=== PATIENT | female | born 1965 | race Caucasian/White ===

== ENCOUNTER 2023-07-15 05:44 | Observation (INO) ==
--- NOTE | 2023-06-22 14:07 | PAT Medication Instructions ---
Medication Instructions Date of Service June 22, 2023 Home Medications albuterol sulfate 90 mcg/actuation aerosol inhaler 1 inh inhalation QID PRN celecoxib 200 mg capsule (Celebrex) 200 mg PO QAM cholecalciferol (vitamin D3) 125 mcg (5,000 unit) tablet (Vitamin D3) 125 mcg PO QAM clonazepam 1 mg tablet (Klonopin) 1 mg PO BID cyanocobalamin (vitamin B-12) 1,000 mcg tablet (Vitamin B-12) 1,000 mcg PO QAM dextroamphetamine-amphetamine 30 mg tablet (Adderall) 30 mg PO TID dulaglutide 0.75 mg/0.5 mL subcutaneous pen injector (Trulicity) 0.75 mg subcut WK ferrous sulfate 325 mg (65 mg iron) tablet 325 mg PO BID insulin glargine 100 unit/mL (3 mL) subcutaneous pen (Lantus Solostar U-100 Insulin) 20 unit subcut BID lisinopril 10 mg tablet 10 mg PO HS montelukast 10 mg tablet (Singulair) 10 mg PO HS paroxetine HCl 30 mg tablet (Paxil) 60 mg PO QAM potassium chloride 20 mEq tablet,extended release 20 meq PO QAM rivaroxaban 20 mg tablet (Xarelto) 20 mg PO QAM ropinirole 4 mg tablet 4 mg PO TID rosuvastatin 10 mg tablet 10 mg PO HS tiotropium bromide 2.5 mcg/actuation mist for inhalation (Spiriva Respimat) 2 puff inhalation QAM topiramate 100 mg tablet (Topamax) 100 mg PO QAM STOP 7 days before surgery (to receive additional instructions at PAT appointment) dulaglutide 0.75 mg/0.5 mL subcutaneous pen injector (Trulicity) 0.75 mg subcut WK ASK your surgeon for instructions celecoxib 200 mg capsule (Celebrex) 200 mg PO QAM ASK your prescriber and surgeon rivaroxaban 20 mg tablet (Xarelto) 20 mg PO QAM(in order for spinal or epidural anesthesia, Xarelto needs to be stopped 72 hours/3 days before surgery. Please check if okay with doctor that prescribes this to you) DO NOT take the morning of surgery cholecalciferol (vitamin D3) 125 mcg (5,000 unit) tablet (Vitamin D3) 125 mcg PO QAM cyanocobalamin (vitamin B-12) 1,000 mcg tablet (Vitamin B-12) 1,000 mcg PO QAM dextroamphetamine-amphetamine 30 mg tablet (Adderall) 30 mg PO TID ferrous sulfate 325 mg (65 mg iron) tablet 325 mg PO BID potassium chloride 20 mEq tablet,extended release 20 meq PO QAM Take morning of surgery With a small sip of water, OTHERWISE NOTHING TO EAT OR DRINK AFTER MIDNIGHT: albuterol sulfate 90 mcg/actuation aerosol inhaler 1 inh inhalation QID PRN(use if needed; please bring with you to hospital day of surgery if possible) clonazepam 1 mg tablet (Klonopin) 1 mg PO BID paroxetine HCl 30 mg tablet (Paxil) 60 mg PO QAM ropinirole 4 mg tablet 4 mg PO TID tiotropium bromide 2.5 mcg/actuation mist for inhalation (Spiriva Respimat) 2 puff inhalation QAM topiramate 100 mg tablet (Topamax) 100 mg PO QAM Take evening before surgery albuterol sulfate 90 mcg/actuation aerosol inhaler 1 inh inhalation QID PRN(if needed) clonazepam 1 mg tablet (Klonopin) 1 mg PO BID dextroamphetamine-amphetamine 30 mg tablet (Adderall) 30 mg PO TID ferrous sulfate 325 mg (65 mg iron) tablet 325 mg PO BID lisinopril 10 mg tablet 10 mg PO HS montelukast 10 mg tablet (Singulair) 10 mg PO HS ropinirole 4 mg tablet 4 mg PO TID rosuvastatin 10 mg tablet 10 mg PO HS Insulin Dependent Diabetic Patients * Test your blood sugar the morning of surgery * If Blood Sugar is GREATER THAN 150, take HALF of your regular dose of: insulin glargine 100 unit/mL (3 mL) subcutaneous pen (Lantus Solostar U-100 Insulin). * If Blood Sugar is LESS THAN 150, DO NOT TAKE ANY: insulin glargine 100 unit/mL (3 mL) subcutaneous pen (Lantus Solostar U-100 Insulin). Other Notes If you have any questions please call us at [phone] or [phone] or [phone] or [phone]
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
[2023-07-15] MEDS ORDERED: ACETAMINOPHEN 500 MG TAB PO SCH (06:00)
[2023-07-15] MEDS ORDERED: LR 500ML BOLUS, THEN 15ML/HR IV SCH (06:00)
[2023-07-15] MEDS ORDERED: ceFAZolin 2000MG 2,000 MG/15 ML SYR IV SCH (06:00)
[2023-07-15] MEDS ORDERED: ROPIVACAINE 0.5% HCL/PF 150 MG, BUPIVACAINE 0.75% MPF 20 ML, EPINEPHrine 30MG/30ML (OR ... INSTIL SCH (06:00)
[2023-07-15] MEDS ORDERED: METOCLOPRAMIDE HCL 10 MG TABLET PO SCH (06:00)
[2023-07-15] MEDS ORDERED: LR 60ML/HR IV SCH (06:00)
[2023-07-15] MEDS ORDERED: TRANEXAMIC ACID 1,000 MG **IV Pre-op IV SCH (06:00)
[2023-07-15] MEDS ORDERED: FAMOTIDINE 20 MG TAB PO SCH (06:00)
[2023-07-15] MEDS ORDERED: GABAPENTIN 600 MG DOSE PO SCH (06:00)
[2023-07-15] MEDS ORDERED: TRANEXAMIC ACID 1,000 MG **IV Intra-op IV SCH (06:00)
[2023-07-15] MEDS ORDERED: CeleBREX 200 MG CAP PO SCH (06:00)
[2023-07-15] MEDS ORDERED: BUPIVACAINE 0.5 % 5 MG/1 ML PF 10ML VIAL ONE (06:26)
[2023-07-15] MEDS ORDERED: ROPIVACAINE 0.5% 5 MG/ML 30 ML VIAL ONE (06:27)
[2023-07-15] MEDS ORDERED: PROPOFOL IV EMULSION 10 MG/ML 20 ML VIAL IV ONE ×4 (07:00→09:24)
[2023-07-15] MEDS ORDERED: fentaNYL citrate PF 100 MCG/2 ML VIAL ONE (07:02)
[2023-07-15] MEDS ORDERED: MIDAZOLAM HCL 1 MG/ML 2ML VIAL ONE (07:02)
[2023-07-15] MEDS ORDERED: LIDOCAINE 2% 2 ML VIAL/AMP(20MG/ML) INFIL ONE (07:03)
[2023-07-15] MEDS ORDERED: ORTHO JOINT ANESTHETIC ONE (07:05)
--- NOTE | 2023-07-15 07:20 | History & Physical Bridge Note ---
Date of Service July 15, 2023 History & Physical Bridge Note I have examined the patient, reviewed the History & Physical and in the interval since the performance of the History & Physical I have noted the following changes of clinical significance: no changes noted
[2023-07-15] MEDS ORDERED: KETAMINE 50 MG/5 ML SYRINGE ONE (08:01)
[2023-07-15] MEDS ORDERED: HYDROmorphone INJ 2 MG/ML SYR/VIAL IV PRN (09:15)
[2023-07-15] MEDS ORDERED: ePHEDrine sulfate 50 MG/ML AMP ONE (09:15)
[2023-07-15] MEDS ORDERED: ePHEDrine sulfate 50 MG/ML AMP IV PRN (09:15)
[2023-07-15] MEDS ORDERED: ATROPINE SULFATE 0.1 MG/ML 10ML SYR IV PRN (09:15)
[2023-07-15] MEDS ORDERED: ePHEDrine sulfate 50 MG/5 ML SYR ONE (09:15)
[2023-07-15] MEDS ORDERED: fentaNYL citrate PF 100 MCG/2 ML VIAL IV PRN (09:15)
[2023-07-15] MEDS ORDERED: PHENYLEPHRINE 100MCG/ML 5ML SYR ONE (09:16)
[2023-07-15] MEDS ORDERED: ONDANSETRON INJ 2 MG/ML 2 ML VIAL ONE (10:06)
--- NOTE | 2023-07-15 10:41 | Operative Report ---
Post Operative Report Pre & Post Diagnosis Operation Date: 07/15/23 07:15 Pre-Op Diagnosis: Left Knee Osteoarthritis, Morbid obesity BMI 42.9 Post-Op Diagnosis: Left Knee Osteoarthritis, morbid obesity BMI 42.9 I identified the patient and participated in the time-out.: Yes Procedure Operation Date: 07/15/23 07:15 Actual Procedures p Left Total Knee Arthroplasty(Left), lateral release, wyatt and Acticoat superficial wound VAC application, increased difficulty due to morbid obesity BMI 42.9 - Heladio Mcpherson MD Surgeon Heladio Mcpherson MD Stock Taker Richi [employer] Estimated Blood Loss 5 Findings Consistent with Post-Op Diagnosis Specimens bone cuts Drains 2 Hemovac Anesthesia Type MAC Spinal Regional Complications none Disposition Disposition: Recovery Room Indications 58-year-old female with chronic osteoarthritis her left knee failed conservative management. X-rays demonstrate grade 4 medial compartment osteoarthritis tricompartmental osteoarthritis including the patellofemoral joint. Patient has a varus knee. Description of Procedure The patient was taken to the operating room and anesthetized under spinal MAC regional block anesthesia. patient was placed supine on the the operating table. A pneumatic tourniquet was placed about the Very obese left upper thigh. The knee exam demonstrated her obesity was abdominal in the thigh and extended down to the knee. There was a 15 degree flexion contracture with further flexion to 125 degrees. There was no pseudolaxity. The involved leg was elevated exsanguinated with Esmarch bandage and the pneumatic tourniquet was raised to 350 millimeters mercury. A longitudinal incision was made across the anterior knee. 358 deep layer of fat was divided down to the fascia. Skin flaps were elevated. An incision was made into the medial retinaculum and extended up into the mid third of the quadriceps tendon and extended down to the medial aspect of the tibial tubercle. intra-articular findings demonstrated degenerative partial tearing of the ACL multiple loose bodies chronic synovitis grade 4 osteoarthritis medial compartment with tricompartmental arthritic changes with advanced patellofemoral osteoarthritis as well with tricompartmental osteophytes. There was a large lateral osteophyte extending and impinging on the IT band and there was a lateral meniscal cyst multiloculated ganglionic type cyst with a degenerative cyst adjacent to the popliteus tendon with degenerative type yellow tissue within it. The knee joint was exposed by excising the cruciate ligaments and menisci. The infrapatellar fat pad was resected. All loose bodies were excised and the ganglion cyst and degenerative type cyst was excised. The fat pad over the anterior femur at the upper aspect of the articular surface was resected for placement of the component in that area. A subperiosteal peel lateral release was performed around the patella. The [employer] journey total knee arthroplasty system was utilized for the procedure. The intramedullary drill hole made into the femur followed by the guide santiago followed by placing a distal femoral cutting guide at 5 degree valgus cut. Distal femoral cutting guide was just to resect 2 more millimeters of femoral cut due to the flexion contracture.. The distal femoral cut was made. The sizing guide was placed in 3 degrees of external rotation the femur sized for a 4 implant. The size 4, 5 in 1 cutting block was placed. The anterior posterior and chamfer cuts were made. The knee was extended and a free hand cut technique was performed to the patella. The patella width was measured and the width was reproduced using a 32 symmetrical patella component. 3 drill holes are made for the patella component pegs. The tibia was then subluxed. The external tibial cutting guide was pinned in position and the proximal tibial cut was made with the oscillating saw. the large lateral osteophyte was excised decompressing the IT band area. Flexion and extension gaps were balanced. No releases were required. The size 2 tibial trial was externally rotated in line with the tibial tubercle and pinned in position. The punch for the stem was used. The femoral trial was inserted and centered the notch cutting devices were used and the collet was placed. Tibial trials were used for the insert. The size 12 posterior stabilized trial gave balanced ligaments through full range of motion. Patella tracking was assessed with range of motion. The patella tracked with some lateral patellar tilt so I did a release of the lateral retinaculum leaving the synovium intact After which the patella tracked centrally.. The trials were removed. The Orthomix anesthetic cocktail was injected per protocol. The cut bone surfaces and soft tissue were copiously irrigated with pulsatile lavage saline solution. The final components were cemented with Refobacin cement. The final components were [employer] journey 2.0 size 4 left posterior stabilized femoral component, 2 left tibial component, 12 mm left posterior stabilized tibial polyethylene insert and 32 mm symmetrical polyethyl jonn patella. After the cement cured, the Betadine soak was used for 3 minutes. The knee was then copiously irrigated with pulsatile lavage saline solution. 2 drains were brought out laterally connected to Hemovac. The quadriceps tendon and medial retinaculum were closed with interrupted [id number] #1 Vicryl sutures. The knee was taken through full range of motion and repair was secure. Knee range of motion was 0 through 130 degrees. the subcutaneous tissues were closed with 2-0 Vicryl sutures in layers due to the obesity. The skin was closed with stable. A wyatt and Acticoat superficial wound VAC was applied. The tourniquet was let down and the patient had good capillary refill to the extremity. The patient tolerated the procedure well. My physician research assistant professor Harris COSME participated as fast food assistant restaurant manager and was integral part in all aspects of the procedure including prepping, draping, leg positioning, soft tissue retraction, instrument management and assisted in the closure , wyatt and Acticoat superficial wound VAC application and will participate in postoperative care the patient. I attest to the content of the Intraoperative Record and any orders documented therein. Any exceptions are noted below.
[2023-07-15] MEDS ORDERED: METOCLOPRAMIDE HCL INJ 5 MG/ML 2 ML VIAL IV PRN (12:50)
[2023-07-15] MEDS ORDERED: PHARMACY GLYCEMIC MGMT CONSULT PRN (12:50)
[2023-07-15] MEDS ORDERED: ONDANSETRON INJ 2 MG/ML 2 ML VIAL IV PRN (12:50)
[2023-07-15] MEDS ORDERED: NALOXONE HCL 0.4 MG/1 ML VIAL/CARP IV PRN (12:50)
[2023-07-15] MEDS ORDERED: bisacodyL 10 MG SUPP PR PRN (12:50)
[2023-07-15] MEDS ORDERED: MAGNESIUM HYDROXIDE SUSP 30 ML UDC PO PRN (12:50)
[2023-07-15] MEDS ORDERED: HYDROmorphone INJ 0.5 MG/0.5 ML SYR IV PRN (12:50)
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
[2023-07-15] MEDS: oxyCODONE HCL IR 5 MG TAB (IMMEDIATE RELEASE) PO PRN ×2 (13:12→21:00)
--- NOTE | 2023-07-15 13:12 | Anesthesiology Progress Note ---
Date of Service July 15, 2023 Anesthesia Post Procedure Vital Signs Vital Signs: Temp Pulse Pulse Resp BP BP Pulse Ox 07/15/23 13:10 36.5 C 82 18 111/75 87 L 07/15/23 12:49 36.6 C 82 18 111/77 90 07/15/23 12:36 36.6 C 86 18 117/77 87 L 07/15/23 12:00 80 20 120/70 95 07/15/23 11:45 60 15 113/72 97 07/15/23 10:50 82 18 125/86 97 07/15/23 11:30 36.4 C L 75 14 114/77 97 07/15/23 11:20 36.1 C L 60 14 120/82 96 07/15/23 11:10 78 16 114/86 97 07/15/23 11:00 60 18 126/86 97 07/15/23 10:40 88 18 120/85 97 07/15/23 10:30 36.0 C L 90 18 126/92 99 07/15/23 06:44 135/81 07/15/23 06:13 36.9 C 81 18 164/85 H 95 O2 Del Method O2 Flow Rate 07/15/23 13:10 Room Air 07/15/23 12:49 Room Air 07/15/23 12:36 Room Air 07/15/23 12:00 Nasal Cannula 2 07/15/23 11:45 Nasal Cannula 2 07/15/23 10:50 Nasal Cannula 2 07/15/23 11:30 Nasal Cannula 2 07/15/23 11:20 Nasal Cannula 2 07/15/23 11:10 Nasal Cannula 2 07/15/23 11:00 Nasal Cannula 2 07/15/23 10:40 Nasal Cannula 3 07/15/23 10:30 Nasal Cannula 3 07/15/23 06:44 07/15/23 06:13 Room Air Pain Intensity Left Knee: Pain Intensity: 9 Transfer of Care Handoff Completed per policy Notes Mental Status: alert / awake / arousable and participated in evaluation Nausea / Vomiting: adequately controlled Pain: adequately controlled Airway Patency, RR, SpO2: stable & adequate BP & HR: stable & adequate Hydration State: stable & adequate Neuraxial Anesthesia: was administered and sensory block is resolving Anesthetic Complications: no major complications apparent and Pt Satisfied with anesthetic care
[2023-07-15 13:25] LABS: Hematocrit (blood only) 39.9 % (37.0-47.0); Hemoglobin 12.7 g/dl (12.0-16.0); Mean Corpuscular Hemoglobin 31.7 pg (25.0-34.0); Mean Corpuscular Hgb Conc 31.8 g/dL (32.0-36.0); Mean Corpuscular Volume 99.5 fL (80.0-100.0); Mean Platelet Volume 9.9 fL (9.4-12.4); Platelet Count 179 K/uL (130-400); RDW Coefficient of Variation 12.9 % (11.5-14.5); RDW Standard Deviation 47.4 fL (36.4-46.3); Red Blood Count 4.01 M/uL (4.20-5.40); White Blood Count 10.24 K/ul (4.8-10.8)
[2023-07-15 13:41] LABS: Albumin Globulin Ratio 1.3 (0.9-2); Albumin Level 3.7 gm/dl (3.4-5.0); BUN Creatinine Ratio 25.3 (10-20); Bilirubin,Total 0.5 mg/dl (0.2-1.0); Calcium 8.7 mg/dl (8.6-10.3); Creatinine Clr Calc Pharmacy 85.9 ml/min; Est GFR (African American) 86.3 ml/min; Est GFR (Non-African American) 74.5 ml/min; Globulin 2.9 gm/dl (2.5-4.0); Potassium 3.9 mmol/L (3.5-5.1); Total Protein 6.6 gm/dl (6.0-8.3)
[2023-07-15] MEDS ORDERED: GLUCOSE 10 TAB/TUBE PO PRN (14:15)
[2023-07-15] MEDS ORDERED: GLUCOSE 40% GEL 15 GM TUBE PO PRN (14:15)
[2023-07-15] MEDS ORDERED: DEXTROSE 50% 50 ML SYRINGE IV PRN (14:15)
[2023-07-15] MEDS ORDERED: GLUCAGON FOR INJ 1 MG VIAL IM PRN (14:15)
--- NOTE | 2023-07-15 14:28 | Pharmacy Report ---
Pharmacy Glycemic Short Note 2 - Date of Service July 15, 2023 - Glycemic Short BSG Results (Last 24 hours): 07/15/23 07/15/23 07/15/23 06:04 10:35 12:54 Glucose 126 H POC Glucose 156 H 135 H OUTPATIENT ANTIDIABETIC REGIMEN: * Lantus 20 units SQ BID * Trulicity 0.75 mg SQ weekly ASSESSMENT: * Ms Wagner is a 58 y/o F with a PMH of T2DM who presents for L TKA. * Patient's preop BSG was 156 and postop BSG was 135. No steroids administered. * Patient took Lantus 15 units RN MED SURG. Will continue with Lantus 15 units SQ BID which is between weight-based stress of 2 and 3. * Novolog weight based stress of 3. PLAN FOR INPATIENT GLYCEMIC CONTROL: * Hold outpatient oral diabetes medications * Basal insulin * Lantus 15 units SQ BID * Bolus insulin * NovoLog per scale ACHS or Q6hrs while NPO * Goal Range: Low 110 mg/dL - High 140 mg/dL * Correction Factor: 20 mg/dL/unit * Nutritional / Prandial insulin per carb ratio of 1 unit per 7 grams CHO consumed
[2023-07-15] MEDS: SODIUM CHLORIDE 0.9% 1,000 ML IV SCH (14:57)
[2023-07-15] MEDS: ACETAMINOPHEN 500 MG TAB PO SCH ×2 (14:57→21:00)
[2023-07-15] MEDS: AMPHETAMINE ASP/SULF/DEXTRAMPH 10 MG TAB PO SCH ×2 (15:07→20:41)
[2023-07-15] MEDS: ALBUTEROL HFA 8 GM INHALER INH PRN (15:46)
--- NOTE | 2023-07-15 15:50 | XRay Report ---
TWO VIEWS LEFT KNEE CLINICAL HISTORY: Postoperative examination. FINDINGS: AP and crosstable lateral portable views of the left knee are obtained. A left knee arthrop lasty is in near anatomic alignment. There has been undersurface remodeling of the patella. No acute fracture is seen. There are expected postoperative changes around the knee including skin clips, a العلي rgical drain, soft tissue edema, and subcutaneous gas. IMPRESSION: Expected postoperative changes status post left knee arthroplasty. No acute fracture is s een. ACT 112: Negative or not required by law. Electronically signed by: Spencer Carreon M.D. 07/15/2023 3:49 PM
[2023-07-15] MEDS: ceFAZolin 2000MG 2,000 MG/15 ML SYR IV SCH ×2 (16:34→23:42)
[2023-07-15] MEDS: FLUTICASONE/VILANTEROL 100/25MCG 14 PUFFS/INHALER INH SCH (16:35)
[2023-07-15] MEDS: INSULIN ASPART PER UNIT CHARGE SC SCH ×3 (16:52→20:57)
[2023-07-15] MEDS: clonazePAM 1 MG TAB PO SCH (20:42)
[2023-07-15] MEDS: FERROUS SULFATE 325 MG TAB PO SCH (20:43)
[2023-07-15] MEDS: DOCUSATE SODIUM 100 MG CAP PO SCH (20:44)
[2023-07-15] MEDS: CARBOHYDRATES FOR HYPOGLYCEMIA PO PRN ×2 (20:52→21:07)
[2023-07-15] MEDS ORDERED: MONTELUKAST SODIUM 10 MG TABLET PO SCH (21:00)
[2023-07-15] MEDS ORDERED: ROSUVASTATIN CALCIUM 20 MG TAB PO SCH (21:00)
[2023-07-15] MEDS ORDERED: ROSUVASTATIN CALCIUM 10 MG TAB PO SCH (21:00)
[2023-07-15] MEDS ORDERED: SENNA 8.6 MG TAB PO SCH (21:00)
[2023-07-15] MEDS ORDERED: D5W AND NSS 1,000 ML IV SCH (23:45)
[2023-07-16] MEDS: SODIUM CHLORIDE 0.9% 1,000 ML IV SCH (00:13)
[2023-07-16] MEDS: oxyCODONE HCL IR 5 MG TAB (IMMEDIATE RELEASE) PO PRN ×2 (02:59→08:39)
[2023-07-16] MEDS: ACETAMINOPHEN 500 MG TAB PO SCH (05:45)
[2023-07-16] MEDS: ALBUTEROL HFA 8 GM INHALER INH PRN (07:39)
--- NOTE | 2023-07-16 08:00 | Orthopedic Progress Note ---
Date of Service July 16, 2023 Assessment & Plan (1) Status post total left knee replacement: Plan: Postop day #1 left total knee arthroplasty -PT/OT -Pain management as written -A.m. labs are pending -DVT prophylaxis: SCDs, teds, Xarelto -Discharge planning: Plan on discharge home with plans on attending outpatient therapy. Plan to discharge home today as long as she progresses well. Admission and Anticipated Discharge Date Admission Date: July 15, 2023 Subjective Patient is postop day #1 left total knee. She is doing well this morning. Has some pain but is controlled. No other complaints. Denies chest pain, shortness of breath, nausea/vomiting/diarrhea, headaches or dizziness. She is hoping to go home today. Review of Systems Review of Systems: All systems reviewed & are unremarkable except as noted in Subjective Physical Exam Physical Exam: Left knee: Dressing is clean, dry, intact. No calf tenderness. Has good dorsiflexion. Toes are mobile. Able to do a straight leg raise. Distally neurovascular status and sensation is grossly intact. Constitutional: WD/WN, vitals as above Results & Data Vital Signs (Past 12 Hours) Vital Signs Temp Pulse Resp BP Pulse Ox O2 Del Method 07/16/23 07:41 86 18 90 Room Air 07/16/23 07:28 93 Room Air 07/16/23 07:00 36.7 C 98 H 18 130/84 90 Room Air 07/16/23 02:54 36.4 C L 91 H 18 127/80 92 Room Air 07/15/23 22:56 36.5 C 92 H 18 142/84 H 91 Room Air 07/15/23 21:49 Room Air Laboratory Results Lab Results 07/15/23 07/15/23 07/15/23 Range/Units 06:04 10:35 12:54 WBC 10.24 (4.8-10.8) K/ul RBC 4.01 L (4.20-5.40) M/uL Hgb 12.7 (12.0-16.0) g/dl Hct 39.9 (37.0-47.0) % MCV 99.5 (80.0-100.0) fL MCH 31.7 (25.0-34.0) pg MCHC 31.8 L (32.0-36.0) g/dL RDW Std Deviation 47.4 H (36.4-46.3) fL RDW Coeff of Carina 12.9 (11.5-14.5) % Plt Count 179 (130-400) K/uL MPV 9.9 (9.4-12.4) fL Sodium (136-145) mmol/L Potassium (3.5-5.1) mmol/L Chloride (98-107) mmol/L Carbon Dioxide (21-32) mmol/L Anion Gap (3-11) BUN (6-23) mg/dl Creatinine (0.6-1.2) mg/dl Est Cr Clr Drug Dosing ml/min Est GFR ( Amer) ml/min Est GFR (Non-Af Amer) ml/min BUN/Creatinine Ratio (10-20) Glucose (70-99(Fasting)) mg/dl POC Glucose 156 H 135 H (70-99) mg/dl Calcium (8.6-10.3) mg/dl Total Bilirubin (0.2-1.0) mg/dl AST (13-39) U/L ALT (7-52) U/L Alkaline Phosphatase (34-104) U/L Total Protein (6.0-8.3) gm/dl Albumin (3.4-5.0) gm/dl Globulin (2.5-4.0) gm/dl Albumin/Globulin Ratio (0.9-2) 07/15/23 07/15/23 07/15/23 Range/Units 12:54 16:42 20:43 WBC (4.8-10.8) K/ul RBC (4.20-5.40) M/uL Hgb (12.0-16.0) g/dl Hct (37.0-47.0) % MCV (80.0-100.0) fL MCH (25.0-34.0) pg MCHC (32.0-36.0) g/dL RDW Std Deviation (36.4-46.3) fL RDW Coeff of Carina (11.5-14.5) % Plt Count (130-400) K/uL MPV (9.4-12.4) fL Sodium 140 (136-145) mmol/L Potassium 3.9 (3.5-5.1) mmol/L Chloride 110 H (98-107) mmol/L Carbon Dioxide 26 (21-32) mmol/L Anion Gap 4 (3-11) BUN 22 (6-23) mg/dl Creatinine 0.87 (0.6-1.2) mg/dl Est Cr Clr Drug Dosing 85.9 ml/min Est GFR ( Amer) 86.3 ml/min Est GFR (Non-Af Amer) 74.5 ml/min BUN/Creatinine Ratio 25.3 H (10-20) Glucose 126 H (70-99(Fasting)) mg/dl POC Glucose 161 H 48 L* (70-99) mg/dl Calcium 8.7 (8.6-10.3) mg/dl Total Bilirubin 0.5 (0.2-1.0) mg/dl AST 14 (13-39) U/L ALT 17 (7-52) U/L Alkaline Phosphatase 57 (34-104) U/L Total Protein 6.6 (6.0-8.3) gm/dl Albumin 3.7 (3.4-5.0) gm/dl Globulin 2.9 (2.5-4.0) gm/dl Albumin/Globulin Ratio 1.3 (0.9-2) 07/15/23 07/15/23 07/15/23 Range/Units 20:44 21:05 21:23 WBC (4.8-10.8) K/ul RBC (4.20-5.40) M/uL Hgb (12.0-16.0) g/dl Hct (37.0-47.0) % MCV (80.0-100.0) fL MCH (25.0-34.0) pg MCHC (32.0-36.0) g/dL RDW Std Deviation (36.4-46.3) fL RDW Coeff of Carina (11.5-14.5) % Plt Count (130-400) K/uL MPV (9.4-12.4) fL Sodium (136-145) mmol/L Potassium (3.5-5.1) mmol/L Chloride (98-107) mmol/L Carbon Dioxide (21-32) mmol/L Anion Gap (3-11) BUN (6-23) mg/dl Creatinine (0.6-1.2) mg/dl Est Cr Clr Drug Dosing ml/min Est GFR ( Amer) ml/min Est GFR (Non-Af Amer) ml/min BUN/Creatinine Ratio (10-20) Glucose (70-99(Fasting)) mg/dl POC Glucose 55 L* 65 L* 76 (70-99) mg/dl Calcium (8.6-10.3) mg/dl Total Bilirubin (0.2-1.0) mg/dl AST (13-39) U/L ALT (7-52) U/L Alkaline Phosphatase (34-104) U/L Total Protein (6.0-8.3) gm/dl Albumin (3.4-5.0) gm/dl Globulin (2.5-4.0) gm/dl Albumin/Globulin Ratio (0.9-2) 07/15/23 07/15/23 07/16/23 Range/Units 23:16 23:54 02:48 WBC (4.8-10.8) K/ul RBC (4.20-5.40) M/uL Hgb (12.0-16.0) g/dl Hct (37.0-47.0) % MCV (80.0-100.0) fL MCH (25.0-34.0) pg MCHC (32.0-36.0) g/dL RDW Std Deviation (36.4-46.3) fL RDW Coeff of Carina (11.5-14.5) % Plt Count (130-400) K/uL MPV (9.4-12.4) fL Sodium (136-145) mmol/L Potassium (3.5-5.1) mmol/L Chloride (98-107) mmol/L Carbon Dioxide (21-32) mmol/L Anion Gap (3-11) BUN (6-23) mg/dl Creatinine (0.6-1.2) mg/dl Est Cr Clr Drug Dosing ml/min Est GFR ( Amer) ml/min Est GFR (Non-Af Amer) ml/min BUN/Creatinine Ratio (10-20) Glucose (70-99(Fasting)) mg/dl POC Glucose 41 L* 122 H 85 (70-99) mg/dl Calcium (8.6-10.3) mg/dl Total Bilirubin (0.2-1.0) mg/dl AST (13-39) U/L ALT (7-52) U/L Alkaline Phosphatase (34-104) U/L Total Protein (6.0-8.3) gm/dl Albumin (3.4-5.0) gm/dl Globulin (2.5-4.0) gm/dl Albumin/Globulin Ratio (0.9-2) 07/16/23 Range/Units 07:51 WBC (4.8-10.8) K/ul RBC (4.20-5.40) M/uL Hgb (12.0-16.0) g/dl Hct (37.0-47.0) % MCV (80.0-100.0) fL MCH (25.0-34.0) pg MCHC (32.0-36.0) g/dL RDW Std Deviation (36.4-46.3) fL RDW Coeff of Carina (11.5-14.5) % Plt Count (130-400) K/uL MPV (9.4-12.4) fL Sodium (136-145) mmol/L Potassium (3.5-5.1) mmol/L Chloride (98-107) mmol/L Carbon Dioxide (21-32) mmol/L Anion Gap (3-11) BUN (6-23) mg/dl Creatinine (0.6-1.2) mg/dl Est Cr Clr Drug Dosing ml/min Est GFR ( Amer) ml/min Est GFR (Non-Af Amer) ml/min BUN/Creatinine Ratio (10-20) Glucose (70-99(Fasting)) mg/dl POC Glucose 117 H (70-99) mg/dl Calcium (8.6-10.3) mg/dl Total Bilirubin (0.2-1.0) mg/dl AST (13-39) U/L ALT (7-52) U/L Alkaline Phosphatase (34-104) U/L Total Protein (6.0-8.3) gm/dl Albumin (3.4-5.0) gm/dl Globulin (2.5-4.0) gm/dl Albumin/Globulin Ratio (0.9-2)
[2023-07-16] MEDS: INSULIN ASPART PER UNIT CHARGE SC SCH (08:23)
[2023-07-16] MEDS: DOCUSATE SODIUM 100 MG CAP PO SCH (08:24)
[2023-07-16] MEDS: FLUTICASONE/VILANTEROL 100/25MCG 14 PUFFS/INHALER INH SCH (08:26)
[2023-07-16] MEDS: FERROUS SULFATE 325 MG TAB PO SCH (08:28)
[2023-07-16 08:31] LABS: Hematocrit (blood only) 36.2 % (37.0-47.0); Hemoglobin 11.7 g/dl (12.0-16.0); Mean Corpuscular Hemoglobin 32.1 pg (25.0-34.0); Mean Corpuscular Hgb Conc 32.3 g/dL (32.0-36.0); Mean Corpuscular Volume 99.5 fL (80.0-100.0); Mean Platelet Volume 10.2 fL (9.4-12.4); Platelet Count 164 K/uL (130-400); RDW Standard Deviation 47.8 fL (36.4-46.3); Red Blood Count 3.64 M/uL (4.20-5.40); White Blood Count 8.89 K/ul (4.8-10.8)
[2023-07-16] MEDS: clonazePAM 1 MG TAB PO SCH (08:39)
[2023-07-16 08:48] LABS: BUN Creatinine Ratio 26.8 (10-20); Calcium 8.2 mg/dl (8.6-10.3); Creatinine Clr Calc Pharmacy 77.1 ml/min; Est GFR (African American) 75.7 ml/min; Est GFR (Non-African American) 65.3 ml/min; Potassium 4.3 mmol/L (3.5-5.1)
[2023-07-16] MEDS ORDERED: NICOTINE 21 MG/24 HR TDSY TD SCH (09:00)
[2023-07-16] MEDS ORDERED: TOPIRAMATE 100 MG TAB PO SCH (09:00)
[2023-07-16] MEDS ORDERED: PARoxetine HCL 20 MG TAB PO SCH (09:00)
[2023-07-16] MEDS ORDERED: RIVAROXABAN 20 MG TAB PO SCH (09:00)
[2023-07-16] MEDS ORDERED: UMECLIDINIUM BROMIDE 62.5MCG/BLISTER 7 PUFFS/INHALER INH SCH (09:00)
[2023-07-16] MEDS ORDERED: CYANOCOBALAMIN (B-12) 500 MCG TABLET PO SCH (09:00)
[2023-07-16] MEDS ORDERED: CeleBREX 200 MG CAP PO SCH (09:00)
[2023-07-16] MEDS ORDERED: MULTIVITAMIN TAB PO SCH (09:00)
[2023-07-16] MEDS ORDERED: CHOLECALCIFEROL 5,000 UNITS 125 MCG TAB PO SCH (09:00)
[2023-07-16] MEDS: AMPHETAMINE ASP/SULF/DEXTRAMPH 10 MG TAB PO SCH (09:51)
--- NOTE | 2023-07-16 12:20 | Discharge Summary ---
Date of Service July 16, 2023 Admission HPI Per Admitting Provider 58-year-old female with past medical history significant for CAD, hypertension, diabetes, COPD, history of PE, anxiety, migraines who presents with ongoing left knee pain. Her pain is interfering with her daily and leisure activities. She has failed conservative measures and would like to proceed with surgical intervention. Patient denies headaches, sweats, fevers, chills, double vision, blurred vision, cough, sore throat, dysphagia, chest pain, sob, wheezing, n/v/d/c, numbness, tingling, fatigue, urinary symptoms, mood disorders. ROS positive for left knee pain and stiffness. Admission Exam Per Admitting Provider Constitutional: well developed and well nourished; no acute distress Eyes: PERRL, conjunctivae normal, anicteric sclerae ENMT: external ear and nose normal, oropharynx normal Neck: trachea midline, no thyromegaly Respiratory: normal respiratory effort, lungs clear to auscultation Cardiovascular: RRR, no murmur, no edema A Musculoskeletal: Left knee: Varus alignment. Mild effusion with tenderness medial joint line. Vincent's is positive. Stable to valgus and varus stress test. Range of motion is 0 to 100 degrees. Skin: no rashes, warm and dry Neurologic: patellar DTR's 2+ bilat, sensation intact Psychiatric: A+Ox3, euthymic affect Principal Diagnosis Left knee osteoarthritis Discharge Exam Left knee: Dressing is clean, dry, intact. No calf tenderness. Has good dorsiflexion. Toes are mobile. Able to do a straight leg raise. Distally neurovascular status and sensation is grossly intact. Discharge Data Allergies Allergy/AdvReac Type Severity Reaction Status Date / Time meperidine [From Demerol] Allergy Severe IV Demerol Verified 07/15/23 06:04 - severe arm swelling Sulfa (Sulfonamide Allergy Severe Rash Verified 07/15/23 06:04 Antibiotics) Consultations 07/13/23 16:42 Consult Hospitalist Routine Procedures Performed Operation Date: 07/15/23 07:15 Actual Procedures p Left Total Knee Arthroplasty(Left) - Heladio Mcpherson MD Ordered Studies 07/15/23 05:00 US - OR guided needle placemen Routine Hospital Course (1) Status post total left knee replacement: Postop day #1 left total knee arthroplasty -PT/OT -Pain management as written -A.m. labs are pending -DVT prophylaxis: SCDs, teds, Xarelto -Discharge planning: Plan on discharge home with plans on attending outpatient therapy. Plan to discharge home today as long as she progresses well. Lab Results 07/15/23 07/15/23 07/15/23 Range/Units 06:04 10:35 12:54 WBC 10.24 (4.8-10.8) K/ul RBC 4.01 L (4.20-5.40) M/uL Hgb 12.7 (12.0-16.0) g/dl Hct 39.9 (37.0-47.0) % MCV 99.5 (80.0-100.0) fL MCH 31.7 (25.0-34.0) pg MCHC 31.8 L (32.0-36.0) g/dL RDW Std Deviation 47.4 H (36.4-46.3) fL RDW Coeff of Carina 12.9 (11.5-14.5) % Plt Count 179 (130-400) K/uL MPV 9.9 (9.4-12.4) fL Sodium (136-145) mmol/L Potassium (3.5-5.1) mmol/L Chloride (98-107) mmol/L Carbon Dioxide (21-32) mmol/L Anion Gap (3-11) BUN (6-23) mg/dl Creatinine (0.6-1.2) mg/dl Est Cr Clr Drug Dosing ml/min Est GFR ( Amer) ml/min Est GFR (Non-Af Amer) ml/min BUN/Creatinine Ratio (10-20) Glucose (70-99(Fasting)) mg/dl POC Glucose 156 H 135 H (70-99) mg/dl Calcium (8.6-10.3) mg/dl Total Bilirubin (0.2-1.0) mg/dl AST (13-39) U/L ALT (7-52) U/L Alkaline Phosphatase (34-104) U/L Total Protein (6.0-8.3) gm/dl Albumin (3.4-5.0) gm/dl Globulin (2.5-4.0) gm/dl Albumin/Globulin Ratio (0.9-2) 07/15/23 07/15/23 07/15/23 Range/Units 12:54 16:42 20:43 WBC (4.8-10.8) K/ul RBC (4.20-5.40) M/uL Hgb (12.0-16.0) g/dl Hct (37.0-47.0) % MCV (80.0-100.0) fL MCH (25.0-34.0) pg MCHC (32.0-36.0) g/dL RDW Std Deviation (36.4-46.3) fL RDW Coeff of Carina (11.5-14.5) % Plt Count (130-400) K/uL MPV (9.4-12.4) fL Sodium 140 (136-145) mmol/L Potassium 3.9 (3.5-5.1) mmol/L Chloride 110 H (98-107) mmol/L Carbon Dioxide 26 (21-32) mmol/L Anion Gap 4 (3-11) BUN 22 (6-23) mg/dl Creatinine 0.87 (0.6-1.2) mg/dl Est Cr Clr Drug Dosing 85.9 ml/min Est GFR ( Amer) 86.3 ml/min Est GFR (Non-Af Amer) 74.5 ml/min BUN/Creatinine Ratio 25.3 H (10-20) Glucose 126 H (70-99(Fasting)) mg/dl POC Glucose 161 H 48 L* (70-99) mg/dl Calcium 8.7 (8.6-10.3) mg/dl Total Bilirubin 0.5 (0.2-1.0) mg/dl AST 14 (13-39) U/L ALT 17 (7-52) U/L Alkaline Phosphatase 57 (34-104) U/L Total Protein 6.6 (6.0-8.3) gm/dl Albumin 3.7 (3.4-5.0) gm/dl Globulin 2.9 (2.5-4.0) gm/dl Albumin/Globulin Ratio 1.3 (0.9-2) 07/15/23 07/15/23 07/15/23 Range/Units 20:44 21:05 21:23 WBC (4.8-10.8) K/ul RBC (4.20-5.40) M/uL Hgb (12.0-16.0) g/dl Hct (37.0-47.0) % MCV (80.0-100.0) fL MCH (25.0-34.0) pg MCHC (32.0-36.0) g/dL RDW Std Deviation (36.4-46.3) fL RDW Coeff of Carina (11.5-14.5) % Plt Count (130-400) K/uL MPV (9.4-12.4) fL Sodium (136-145) mmol/L Potassium (3.5-5.1) mmol/L Chloride (98-107) mmol/L Carbon Dioxide (21-32) mmol/L Anion Gap (3-11) BUN (6-23) mg/dl Creatinine (0.6-1.2) mg/dl Est Cr Clr Drug Dosing ml/min Est GFR ( Amer) ml/min Est GFR (Non-Af Amer) ml/min BUN/Creatinine Ratio (10-20) Glucose (70-99(Fasting)) mg/dl POC Glucose 55 L* 65 L* 76 (70-99) mg/dl Calcium (8.6-10.3) mg/dl Total Bilirubin (0.2-1.0) mg/dl AST (13-39) U/L ALT (7-52) U/L Alkaline Phosphatase (34-104) U/L Total Protein (6.0-8.3) gm/dl Albumin (3.4-5.0) gm/dl Globulin (2.5-4.0) gm/dl Albumin/Globulin Ratio (0.9-2) 07/15/23 07/15/23 07/16/23 Range/Units 23:16 23:54 02:48 WBC (4.8-10.8) K/ul RBC (4.20-5.40) M/uL Hgb (12.0-16.0) g/dl Hct (37.0-47.0) % MCV (80.0-100.0) fL MCH (25.0-34.0) pg MCHC (32.0-36.0) g/dL RDW Std Deviation (36.4-46.3) fL RDW Coeff of Carina (11.5-14.5) % Plt Count (130-400) K/uL MPV (9.4-12.4) fL Sodium (136-145) mmol/L Potassium (3.5-5.1) mmol/L Chloride (98-107) mmol/L Carbon Dioxide (21-32) mmol/L Anion Gap (3-11) BUN (6-23) mg/dl Creatinine (0.6-1.2) mg/dl Est Cr Clr Drug Dosing ml/min Est GFR ( Amer) ml/min Est GFR (Non-Af Amer) ml/min BUN/Creatinine Ratio (10-20) Glucose (70-99(Fasting)) mg/dl POC Glucose 41 L* 122 H 85 (70-99) mg/dl Calcium (8.6-10.3) mg/dl Total Bilirubin (0.2-1.0) mg/dl AST (13-39) U/L ALT (7-52) U/L Alkaline Phosphatase (34-104) U/L Total Protein (6.0-8.3) gm/dl Albumin (3.4-5.0) gm/dl Globulin (2.5-4.0) gm/dl Albumin/Globulin Ratio (0.9-2) 07/16/23 07/16/23 07/16/23 Range/Units 07:46 07:46 07:51 WBC 8.89 (4.8-10.8) K/ul RBC 3.64 L (4.20-5.40) M/uL Hgb 11.7 L (12.0-16.0) g/dl Hct 36.2 L (37.0-47.0) % MCV 99.5 (80.0-100.0) fL MCH 32.1 (25.0-34.0) pg MCHC 32.3 (32.0-36.0) g/dL RDW Std Deviation 47.8 H (36.4-46.3) fL RDW Coeff of Carina 13.0 (11.5-14.5) % Plt Count 164 (130-400) K/uL MPV 10.2 (9.4-12.4) fL Sodium 136 (136-145) mmol/L Potassium 4.3 (3.5-5.1) mmol/L Chloride 107 (98-107) mmol/L Carbon Dioxide 26 (21-32) mmol/L Anion Gap 3 (3-11) BUN 26 H (6-23) mg/dl Creatinine 0.97 (0.6-1.2) mg/dl Est Cr Clr Drug Dosing 77.1 ml/min Est GFR ( Amer) 75.7 ml/min Est GFR (Non-Af Amer) 65.3 ml/min BUN/Creatinine Ratio 26.8 H (10-20) Glucose 121 H (70-99(Fasting)) mg/dl POC Glucose 117 H (70-99) mg/dl Calcium 8.2 L (8.6-10.3) mg/dl Total Bilirubin (0.2-1.0) mg/dl AST (13-39) U/L ALT (7-52) U/L Alkaline Phosphatase (34-104) U/L Total Protein (6.0-8.3) gm/dl Albumin (3.4-5.0) gm/dl Globulin (2.5-4.0) gm/dl Albumin/Globulin Ratio (0.9-2) Total Time Total Time Spent Total Time Spent (In Minutes): 20 Discharge Plan Discharge Items Patient Disposition: Home - Self-Care Reason For Visit: Left Knee Osteoarthritis Discharge Diagnosis: Left knee osteoarthritis Activity: Per Instructions section Non-emergency contact: Surgeon Call non-emergency contact if: you have any medication questions, your pain is not controlled, your pain is unusual for you, you have a fever, your wound has increased redness and your wound has increased drainage Follow-up/Referrals: Francisco George M.D. [Primary Care Provider] - Diet: Regular Addtl Attending Provider Instructions: ACTIVITY RECOMMENDATIONS: SELF CARE INSTRUCTIONS AFTER TOTAL KNEE REPLACEMENT A. You may need to continue a physical therapy program after discharge from the hospital. There are several options available to you. Your doctor will assist you in selecting the best one for you. 1. An out-patient facility 2 to 3 times a week for therapy or home therapy. 2. Continue working on all exercises taught to you in the hospital. Your goals should be to increase bending of your knee to 90 degrees and beyond and to fully straighten your knee. B. You may progress at your own pace from walking with a walker or crutches to a cane; then to no assistive devices. C. Make walking a part of your daily routine. Be up as much as comfortable with rest periods throughout the day. Rest with leg elevation is very important. Use the ice wrap frequently for the first 3-4 weeks. D. There are no restrictions on activities. You may ride in a car, shop, participate in reaming machine tender and all social activities. E. Wear the long elastic stockings (TREY hose) 20 hours a day for 2 weeks after surgery. They can be removed several times a day for laundering and for a bath. F. You may shower, no tub baths until cleared by your doctor. SPECIAL CARE INSTRUCTIONS: VERY IMPORTANT TO READ AND REVIEW A. There are a few signs you need to watch for after you are home. Call [facility] [place] if you notice any of the followin. Increased severe knee pain. Some pain is expected especially when you exercise. 2. Increased swelling in your leg or knee; pain or swelling of the calf muscle in either lower leg. 3. Any fluid drainage from the incision. 4. Shortness of breath or chest pain. B. Please call [facility] at if you have any concerns or questions about your operation or recovery. The doctor or his nurse will return your call promptly. C. You must take antibiotics before dental work, bladder, bowel or other surgery. Your doctor will provide you with a permanent care to carry describing this precaution. IMPORTANT: * REMEMBER TO TAKE ASPIRIN, 81 MG, TWICE DAILY FOR 4 WEEKS UNLESS OTHERWISE DIRECTED. THIS IS YOUR BLOOD THINNER. * HIGH RISK PATIENTS MAY BE PRESCRIBED A STRONGER BLOOD THINNER. THIS WILL BE PROVIDED AT DISCHARGE. * CALL IF INCREASED PAIN, REDNESS, DRAINAGE OR FEVER GREATER THAT 101. * WEAR TREY HOSE 20 HOURS PER DAY FOR 2 WEEKS. There is a large suction dressing covering your incision. This will help pull any excess drainage from the wound and allow your incision to heal properly. You may shower with this if you can keep the unit outside of the shower. If any bleeding or leakage is noted please call your doctor's office. This will remain on your incision for 7 days and then should be removed. This can be done yourself or by the home nursing staff if applicable. The entire unit is disposable once removed. Once removed, keep incision clean and dry. If redness or drainage is noted, please call your surgeon. IF INCISION IS LEAKING THROUGH DRESSING, CALL THE OFFICE . FOLLOW UP VISIT: If appointment is not already scheduled: Please call [facility] [place] to make a follow-up appointment for 2 weeks after your surgery at . Stand-Alone Forms: My [facility] [address], Smoking Cessation Medications and DC Order Prescriptions: New oxycodone 5 mg Tablet 5 - 10 mg PO .Q4h-6h MDD 6 PRN (Reason: pain) Qty: 30 0RF Rx Instructions: Ongoing therapy, Dr. Mcpherson supervising acetaminophen [Tylenol Extra Strength] 500 mg Tablet 1,000 mg PO Q8 Qty: 60 0RF cefadroxil 500 mg capsule 500 mg PO BID Qty: 28 0RF Continued celecoxib [Celebrex] 200 mg Capsule 200 mg PO QAM clonazepam [Klonopin] 1 mg Tablet 1 mg PO BID dextroamphetamine-amphetamine [Adderall] 30 mg Tablet 30 mg PO TID paroxetine HCl [Paxil] 30 mg Tablet 60 mg PO QAM montelukast [Singulair] 10 mg Tablet 10 mg PO HS topiramate [Topamax] 100 mg Tablet 100 mg PO QAM ropinirole 4 mg Tablet 4 mg PO TID Xarelto 20 mg Tablet 20 mg PO QAM cyanocobalamin (vitamin B-12) [Vitamin B-12] 1,000 mcg Tablet 1,000 mcg PO QAM ferrous sulfate 325 mg (65 mg iron) Tablet 325 mg PO BID cholecalciferol (vitamin D3) [Vitamin D3] 125 mcg (5,000 unit) Tablet 125 mcg PO QAM insulin glargine [Lantus Solostar U-100 Insulin] 100 unit/mL (3 mL) Insulin Pen 20 unit SUBCUT BID Rx Instructions: too 15 unit this AM at 0330 Trulicity 0.75 mg/0.5 mL Pen Injector 0.75 mg SUBCUT WK Rx Instructions: Fridays albuterol sulfate 90 mcg/actuation Hfa Aerosol Inhaler 1 inh INHALATION QID PRN (Reason: sob) Spiriva Respimat 2.5 mcg/actuation Mist 2 puff INHALATION QAM budesonide-formoterol [Symbicort] 160-4.5 mcg/actuation HFA aerosol inhaler 2 inh INHALATION BID rosuvastatin 40 mg tablet 40 mg PO QPM Discharge Orders: Discharge Order (Routine); Ordered 07/16/23 Ordered By: Harris Orosco Admission Data Admit Date/Time: 07/15/23 10:32 Attending Provider: Heladio Mcpherson Admit Provider: Heladio Mcpherson Primary Care Provider: Francisco George Other Providers: Azam Freeman George A Other Interventions: Discharge Summary Assessment (RN) Last Done: 07/16/23 10:29
[2023-07-16] MEDS ORDERED: rOPINIRole HCL 2 MG TABLET PO SCH (14:00)
== END 2023-07-16 11:00 | disposition home or self-care (01) ==
LOC: ASU 05:44 → 3N 05:44